=== PATIENT | female | born 1965 | race Caucasian/White ===

== ENCOUNTER 2018-02-28 06:29 | Day surgery (SDC) | payer BC ==
[2018-02-26 18:28] LABS: Absolute Monocytes 0.6 K/uL (0.1-1.3); Absolute Neutrophil 5.6 K/uL (1.8-8.0); Basophils % 0.4 % (0-1.3); Eosinophils % 0.9 % (0-4.4); Hematocrit 41.4 % (36.0-45.0); Lymphocytes % 24.2 % (15.3-44.8); MCH 29.9 pg (27.0-35.0); MCV 87.9 fL (80-100); MPV 8.1 fL (7.6-11.3); RBC Red Blood Cell Count 4.71 M/uL (3.86-4.86)
[2018-02-26 18:41] LABS: Albumin 4.1 g/dL (3.4-5.0); Bilirubin Total 0.4 mg/dL (0.2-1.0); Potassium 3.7 mmol/L (3.5-5.1); Protein, Total 7.9 g/dL (6.4-8.2)
[2018-02-26 18:48] LABS: Protime INR 1.02
--- OUTSIDE RECORDS SUMMARY | 2018-02-28 06:31 | XMS REPORT | Clinical Summary ---
:1965 Author Organization [facility] Address [address] [place] [address] Care Team Providers Name Role Phone Asked, No Pcp Primary Care Provider Unavailable Allergies No Known Allergies Medications No known medications Active Problems Problem Noted Date Iron deficiency anemia 10/19/2015 Family History Relation Name Status Comments Brother Alive Father Alive Mother Alive Social History Tobacco Use Types Packs/Day Years Used Date Never Smoker Tobacco Cessation: Counseling Given: No Alcohol Use Drinks/Week oz/Week Comments Yes Sex Assigned at Date Recorded Not on file Job Start Date Occupation Industry Not on file Not on file Not on file Travel History Travel Start Travel End No recent travel history available. Last Filed Vital Signs Not on file Plan of Treatment Health Maintenance Due Date Last Done Comments CERVICAL CANCER SCREENING 11/03/1988 INFLUENZA VACCINE 10/24/2017 BREAST CANCER SCREENING 11/03/2017 COLON CANCER SCREENING 11/03/2017 SHINGRIX VACCINE (1 of 2) 11/03/2017 HEPATITIS B VACCINES Aged Out No longer eligible based on patient's age to complete this topic IPV VACCINES Aged Out No longer eligible based on patient's age to complete this topic MENINGOCOCCAL VACCINE Aged Out No longer eligible based on patient's age to complete this topic Results Not on fileafter 02/27/2017 Insurance Payer Benefit Plan / Group Subscriber ID Type Phone Address BCBS BCBS CHOICE PPO/F[employer]ERAL EMPL PPO xxxxxxxxxxxxxxx PPO Advance Directives Patient has advance care planning documents on file. For more information, please contact:[address] [address]
[2018-02-28] MEDS ORDERED: Ringers Lactate 1,000 ML IV ONE (06:56)
[2018-02-28] MEDS ORDERED: FENTANYL CITR 100 MCG/2 ML ONE (07:17)
[2018-02-28] MEDS ORDERED: LIDOCAINE 2% MPF 5 ML VIAL ONE (07:17)
[2018-02-28] MEDS ORDERED: PROPOFOL 200 MG/20 ML VIAL IV ONE (07:17)
[2018-02-28] MEDS ORDERED: MIDAZOLAM HCL 2 MG/2 ML INJ ONE (07:17)
[2018-02-28] MEDS ORDERED: LIDOCAINE 1% MPF 30 ML VIAL ONE (07:36)
[2018-02-28] MEDS ORDERED: KETOROLAC 30 MG/ML INJ ONE (08:07)
--- NOTE | 2018-02-28 08:13 | P.OP ---
Preoperative diagnosis: right hallux ganglion Primary procedure: right hallux ganglion excision Anesthesia: mac with 10cc 1:1 0.5% marcaine 1% lidocaine plain Estimated blood loss: <10cc Specimen: soft tissue Findings: soft tissue cyst right hallux Operative Technique: Dorsal incision right hallux ipj carried from superficial to deep taking care to ligate, retract and preserve all vital neurovascular structures. Cyst was identified with clear fluid being exuded from wound. Utilizing sharp and blunt disection the cyst was excised from the surgical site. The wound was irrigate with nss and closure obtained with 4-0 vicryl and prolene. Sterile dressing applied consisting of adaptic, 4X4s, dot and mere wrap. Deflation of pat with prompt hyperemic response being noted Complications: None Transferred to: Recovery Room Condition: Good
== END 2018-02-28 09:15 | disposition home or self-care (01) ==
LOC: OR 06:29
PROVIDERS: ATTEND Podiatrist Foot & Ankle Surgery
PROC: 0LBV0ZZ Excision of Right Foot Tendon, Open Approach (ICD-10-PCS; principal; 2018-02-28 07:30)
DX: M67.471 Ganglion, right ankle and foot (principal)
CPT/HCPCS: 36415; 80053; 81025; 85025; 85610; 85730; 88304; J2250; J2704; J3010